=== PATIENT | male | born 1990 | race Caucasian/White ===

== ENCOUNTER 2019-01-22 19:34 | Emergency (ER) | payer OTHER ==
[~2019-01-22] VITALS: Ht 175.3 cm; Wt 75.8 kg
[2019-01-22 19:53] VITALS: BP 148/100
--- NOTE | 2019-01-22 19:55 | NUR ---
TO LOBBY, VSS. AWATING BED IN ED.
--- NOTE | 2019-01-22 21:18 | NUR ---
PT REMAINS IN LOBBY IN STABLE CONDITION, AWAITING BED IN ED.
--- NOTE | 2019-01-22 21:40 | NUR ---
ambulatory to bed1
[2019-01-22 22:15] VITALS: BP 150/89
--- NOTE | 2019-01-22 22:15 | NUR ---
Patient discharged with v/s stable. Written and verbal after care instructions given and explained. Patient alert, oriented and verbalized understanding of instructions. Ambulatory with steady gait. All questions addressed prior to discharge. ID band removed. Patient advised to follow up with PMD. Rx of motrin, benadryl given. Patient educated on indication of medication including possible reaction and side effects. Opportunity to ask questions provided and answered.
== END 2019-01-22 22:15 | disposition home or self-care (01) ==
LOC: MED 19:34
DX: S80.862A Insect bite (nonvenomous), left lower leg, initial encounter (principal); Z88.0 Allergy status to penicillin; W57.XXXA Bitten or stung by nonvenomous insect and other nonvenomous arthropods, initial encounter; Y93.89 Activity, other specified; Y92.89 Other specified places as the place of occurrence of the external cause; Y99.8 Other external cause status
CPT/HCPCS: 99282